=== PATIENT | male | born 1930 | race Caucasian/White ===

== ENCOUNTER 2016-10-19 12:41 | Emergency (ER) | payer OTHER, BC ==
[~2016-10-19] VITALS: Ht 175.3 cm; Wt 94.4 kg
[~2016-10-19 12:41] MED LIST: AMLODIPINE BESY10 MG PO; ANTIVERT25 MG PO; ASPIRIN E.C.81 M1 PO; ASPIRIN325 MG PO; Antivert PO; BISAC-EVAC10 MG PR; Baciguent TP; CALCIUM500 M4 PO; CLOPIDOGREL75 MG PO; CLORAZEPATE D3.75 MG PO; COUMADIN1 MG PO; COUMADIN3 MG PO; COUMADIN4 MG PO; COZAAR50 MG PO; Cozaar PO; DIOVAN80 MG PO; DUONEB 2.5-0.5 M3 ML IH; Diabeta,Micronase PO; ELAVIL75 MG PO; Ecotrin PO; Elavil PO; FLOMAX0.4 MG PO; GLUCAGEN1 MG IM/SC; GLUCOPHAGE1000 MG PO; GLYBURIDE5 MG PO; IBUPROFEN800 MG PO; JANUVIA100 MG PO; JANUVIA25 MG PO; Januvia PO; KEFLEX500 MG PO; KETOCONAZOLE60 GM TP; LANTUS 3 M100 UNITS1 SC; LEVEMIR FL100 UNIT/1 SC; LOSARTAN POTASS50 MG PO; LOW DOSE ASPIRI81 M1 PO; MECLIZINE HCL25 MG PO; METHOCARBAMOL500 MG PO; METOCLOPRAMIDE10 MG PO; MICRONASE5 MG PO; NAPROSYN-EC 37375 MG PO; NORVASC10 MG PO; NOVOLOG PE100 UNITS/ SC; Norvasc PO; ONDANSETRON ODT4 MG PO; OXYCODONE HCL5 M1 PO; Oscal 500 w/Vitamin PO; PANTOPRAZOLE SO40 MG PO; PERCOCET 5/31 TABLET PO; PLAVIX75 MG PO; PROTONIX40 MG PO; Plavix PO; Protonix PO; ROCEPHIN1000 MG IM; ROXICODONE5 MG PO; SENNA PLUS TAB1 EACH PO; SENNA-TIME S T1 EACH PO; SPIRIVA1 INHALATI IH; Senokot S,Pericolace PO; TAMSULOSIN HCL0.4 MG PO; THERAGRAN1 TABLET PO; TRANXENE T PO; TRANXENE T-TA3.75 MG PO; TYLENOL REGULA325 MG PO; Theragran PO; Vasotec PO; ZOFRAN4 MG PO
[2016-10-19 14:13] LABS: HEMATOCRIT 46.2 % (38.0-50.0); MCH 30.2 PG (29.0-34.0); MCHC 33.3 G/DL (30.0-36.0); MCV 90.6 FL (86-99); MEAN PLAT.VOLUME 9.6 uM^3 (9.0-12.4); PLATELET COUNT 230 K/uL (156-360); RBC DIS.WIDTH-CV 12.8 % (11.8-14.6); RBC DIS.WIDTH-SD 42.5 % (39-53); WHITE BLOOD COUNT 11.5 K/uL (4.1-10.2)
[2016-10-19 14:28] LABS: CHLORIDE 99 mEq/L (99-109); POTASSIUM 4.1 mEq/L (3.7-5.4); SODIUM 134 mEq/L (136-147)
[2016-10-19 14:30] LABS: GLUCOSE 203 mg/dL (70-99)
[2016-10-19 14:32] LABS: ANION GAP 8 MEQ/L (2-14)
[2016-10-19 14:34] LABS: GFR ESTIMATE (CALCULATED) 32 mL/min/
[2016-10-19 14:35] LABS: UREA NITROGEN (BUN) 31 mg/dL (9-23)
[2016-10-19 14:36] LABS: TROP-I INTERPRETATION NEGATIVE; TROPONIN-I 0.07 ng/mL (0.0-0.30)
[2016-10-19] MEDS ORDERED: PREDNISONE50 MG PO (14:52)
[2016-10-19] MEDS ORDERED: ZITHROMAX250 MG PO (14:52)
[2016-10-19] MEDS ORDERED: FLEXERIL10 MG PO (15:24)
[2016-10-19 15:39] VITALS: BP 145/78
== END 2016-10-19 15:41 | disposition home or self-care (01) ==
LOC: EME → EDBD 12:41 → EME 15:41
PROVIDERS: Emergency Medicine
DX: J44.1 Chronic obstructive pulmonary disease with (acute) exacerbation (principal); M54.12 Radiculopathy, cervical region; Z87.891 Personal history of nicotine dependence; E11.9 Type 2 diabetes mellitus without complications; Z79.84 Long term (current) use of oral hypoglycemic drugs; I10 Essential (primary) hypertension; I25.2 Old myocardial infarction; I69.392 Facial weakness following cerebral infarction; I69.398 Other sequelae of cerebral infarction; R53.1 Weakness; Z79.01 Long term (current) use of anticoagulants; Z79.82 Long term (current) use of aspirin
CPT/HCPCS: 71020; 80048; 84484; 85027; 93005; 94640; 99281; 99285; J7512

== ENCOUNTER 2017-07-16 11:42 | Inpatient (IN) | payer OTHER, BC ==
[~2017-07-16] VITALS: Ht 175.3 cm; Wt 90.4 kg
[~2017-07-16 11:42] MED LIST changes: +FLEXERIL10 MG PO; +PREDNISONE50 MG PO; +ZITHROMAX250 MG PO
[2017-07-16 12:41] LABS: HEMATOCRIT 48.3 % (38.0-50.0); HEMOGLOBIN 16.1 G/DL (12.5-16.6); MCH 31.1 PG (29.0-34.0); MCHC 33.3 G/DL (30.0-36.0); MCV 93.2 FL (86-99); PLATELET COUNT 402 K/uL (156-360); RBC DIS.WIDTH-CV 13.2 % (11.8-14.6); RBC DIS.WIDTH-SD 45.1 % (39-53); RED BLOOD COUNT 5.18 M/uL (4.00-5.50); WHITE BLOOD COUNT 14.8 K/uL (4.1-10.2)
[2017-07-16 12:51] LABS: CHLORIDE 94 mEq/L (99-109); SODIUM 134 mEq/L (136-147)
[2017-07-16 12:53] LABS: GLUCOSE 363 mg/dL (70-99)
[2017-07-16 12:57] LABS: CREATININE 3.3 mg/dL (0.6-1.3); GFR ESTIMATE (CALCULATED) 19 mL/min/ (58.99-99999); UREA NITROGEN (BUN) 57 mg/dL (9-23)
[2017-07-16 13:03] LABS: POTASSIUM 6.2 mEq/L (3.7-5.4); TROP-I INTERPRETATION NEGATIVE; TROPONIN-I 0.01 ng/mL (0.0-0.30)
[2017-07-16] MEDS ORDERED: OXYCODONE HCL10 MG PO (17:15)
[2017-07-16] MEDS ORDERED: ASPIR-LOW81 MG PO (17:16)
[2017-07-16] MEDS ORDERED: AMOX TR-K CLV1 EAC4 PO (17:16)
[2017-07-16] MEDS ORDERED: AMITRIPTYLINE H10 MG PO (17:17)
[2017-07-16] MEDS ORDERED: VENTOLIN HFA18 GM IH (17:17)
[2017-07-16] MEDS ORDERED: GLIPIZIDE5 MG PO (17:18)
[2017-07-16] MEDS ORDERED: PHENERGAN-CODE120 ML PO (17:18)
[2017-07-16] MEDS ORDERED: JANUVIA100 MG PO (17:18)
[2017-07-16] MEDS ORDERED: LOSARTAN POTASS50 MG PO (17:19)
[2017-07-16] MEDS ORDERED: DIABETA5 MG PO (17:19)
[2017-07-16 17:20] VITALS: BP 141/66
[2017-07-16] MEDS ORDERED: FUROSEMIDE20 MG PO (17:20)
[2017-07-16] MEDS ORDERED: PANTOPRAZOLE SO40 MG PO (17:20)
[2017-07-16] MEDS ORDERED: AMITRIPTYLINE H75 MG PO (17:20)
[2017-07-16] MEDS ORDERED: DOXYCYCLINE HY100 M3 PO (17:20)
[2017-07-16] MEDS ORDERED: AMLODIPINE BESYL5 MG PO (17:21)
[2017-07-16] MEDS ORDERED: TAMSULOSIN HCL0.4 MG PO (17:21)
[2017-07-16] MEDS ORDERED: CLOPIDOGREL75 MG PO (17:21)
[2017-07-16] MEDS ORDERED: LANTUS 3 M100 UNITS1 SC (17:22)
[2017-07-16] MEDS ORDERED: METHOCARBAMOL500 MG PO (17:23)
[2017-07-16] MEDS ORDERED: ERGOCALCIF50000 UNIT PO (17:23)
[2017-07-16 17:26] LABS: CHLORIDE 99 mEq/L (99-109); SODIUM 140 mEq/L (136-147)
[2017-07-16 17:33] LABS: UREA NITROGEN (BUN) 54 mg/dL (9-23)
[2017-07-16 17:40] LABS: CREATININE 2.8 mg/dL (0.6-1.3); GFR ESTIMATE (CALCULATED) 23 mL/min/ (58.99-99999); GLUCOSE 76 mg/dL (70-99)
[2017-07-16 17:41] LABS: POTASSIUM 4.9 mEq/L (3.7-5.4)
[2017-07-16 17:49] VITALS: BP 141/66
[2017-07-16 21:05] VITALS: BP 129/62
[2017-07-16 23:49] VITALS: BP 120/65
[2017-07-17 02:22] LABS: APPEARANCE TURBID ((CLEAR)); BILIRUBIN NEGATIVE; BLOOD LARGE; COLOR RED ((YELLOW)); GLUCOSE (STRIP) NEGATIVE; KETONES NEGATIVE; LEUKOCYTES NEGATIVE; NITRITE NEGATIVE; PROTEIN (STRIP) 30
[2017-07-17 02:24] LABS: RED BLOOD CELLS TNTC /HPF (0-5); UCUL ADDED? YES
[2017-07-17 03:38] VITALS: BP 130/63
[2017-07-17 04:23] LABS: UR CREATININE CONCENTRATION 86.2 MG/DL
[2017-07-17 06:28] LABS: HEMATOCRIT 43.9 % (38.0-50.0); MCH 29.9 PG (29.0-34.0); MCHC 31.9 G/DL (30.0-36.0); MCV 93.6 FL (86-99); PLATELET COUNT 364 K/uL (156-360); RBC DIS.WIDTH-CV 13.2 % (11.8-14.6); RBC DIS.WIDTH-SD 45.1 % (39-53); RED BLOOD COUNT 4.69 M/uL (4.00-5.50); WHITE BLOOD COUNT 9.7 K/uL (4.1-10.2)
[2017-07-17 06:33] LABS: CHLORIDE 102 MEQ/L (99-109); CREATININE 2.6 MG/DL (0.6-1.3); GFR ESTIMATE (CALCULATED) 25 mL/min/ (58.99-99999); POTASSIUM 4.8 MEQ/L (3.7-5.4); SODIUM 139 MEQ/L (136-147); UREA NITROGEN (BUN) 46 mg/dL (9-23)
[2017-07-17 06:45] LABS: GLUCOSE 134 mg/dL (70-99)
[2017-07-17 08:55] VITALS: BP 121/60
[2017-07-17 12:05] VITALS: BP 114/56
[2017-07-17 15:43] VITALS: BP 110/59
[2017-07-17 21:42] VITALS: BP 109/55
[2017-07-18 00:18] VITALS: BP 138/60
[2017-07-18 03:55] VITALS: BP 132/64
[2017-07-18 05:06] LABS: CHLORIDE 102 mEq/L (99-109); POTASSIUM 4.2 mEq/L (3.7-5.4); SODIUM 138 mEq/L (136-147)
[2017-07-18 05:08] LABS: GLUCOSE 158 mg/dL (70-99)
[2017-07-18 05:12] LABS: GFR ESTIMATE (CALCULATED) 32 mL/min/ (58.99-99999); UREA NITROGEN (BUN) 39 mg/dL (9-23)
[2017-07-18 05:16] LABS: CREATININE 2.1 mg/dL (0.6-1.3)
[2017-07-18 08:07] VITALS: BP 138/72
[2017-07-18 11:36] VITALS: BP 118/69
[2017-07-18 15:40] VITALS: BP 133/64
[2017-07-18 23:13] VITALS: BP 135/71
[2017-07-19 05:48] LABS: HEMATOCRIT 41.4 % (38.0-50.0); HEMOGLOBIN 13.4 G/DL (12.5-16.6); MCH 29.9 PG (29.0-34.0); MCHC 32.4 G/DL (30.0-36.0); MCV 92.4 FL (86-99); PLATELET COUNT 345 K/uL (156-360); RBC DIS.WIDTH-CV 12.7 % (11.8-14.6); RBC DIS.WIDTH-SD 43.5 % (39-53); RED BLOOD COUNT 4.48 M/uL (4.00-5.50); WHITE BLOOD COUNT 7.3 K/uL (4.1-10.2)
[2017-07-19 05:58] VITALS: BP 135/71; BP 155/78
[2017-07-19 06:33] LABS: CHLORIDE 106 MEQ/L (99-109); CREATININE 1.8 MG/DL (0.6-1.3); GFR ESTIMATE (CALCULATED) 38 mL/min/ (58.99-99999); GLUCOSE 179 mg/dL (70-99); MAGNESIUM 1.8 mg/dl (1.3-2.7); POTASSIUM 4.8 MEQ/L (3.7-5.4); SODIUM 137 MEQ/L (136-147); UREA NITROGEN (BUN) 27 mg/dL (9-23)
[2017-07-19 07:30] VITALS: BP 152/70
[2017-07-19 11:47] VITALS: BP 157/71
[2017-07-19] MEDS ORDERED: CEFTIN500 MG PO (12:51)
[2017-07-19] MEDS ORDERED: NIFEDIPINE ER30 MG PO (12:54)
[2017-07-19] MEDS ORDERED: TAMSULOSIN HCL0.4 MG PO (12:54)
== END 2017-07-19 14:30 | disposition home health service (06) | DRG 190 ==
LOC: EME 11:42 → EDOF 14:44 → ENRESERV 14:45 → 4EAST 17:11 → ENPENDDIS 07-19 → 4EAST 07-19 14:30
PROVIDERS: Emergency Medicine; Hospitalist; Internal Medicine; Internal Medicine Nephrology
DX: J44.1 Chronic obstructive pulmonary disease with (acute) exacerbation (principal); J96.01 Acute respiratory failure with hypoxia; J44.0 Chronic obstructive pulmonary disease with (acute) lower respiratory infection; N17.9 Acute kidney failure, unspecified; I69.354 Hemiplegia and hemiparesis following cerebral infarction affecting left non-dominant side; E87.5 Hyperkalemia; Z74.01 Bed confinement status; I12.9 Hypertensive chronic kidney disease with stage 1 through stage 4 chronic kidney disease, or unspecified chronic kidney disease; N18.3 Chronic kidney disease, stage 3 (moderate); E11.22 Type 2 diabetes mellitus with diabetic chronic kidney disease; E78.5 Hyperlipidemia, unspecified; E87.2 Acidosis; J18.9 Pneumonia, unspecified organism; N40.1 Benign prostatic hyperplasia with lower urinary tract symptoms; Z96.642 Presence of left artificial hip joint; R33.8 Other retention of urine; R31.0 Gross hematuria; S37.30XA Unspecified injury of urethra, initial encounter; Y84.6 Urinary catheterization as the cause of abnormal reaction of the patient, or of later complication, without mention of misadventure at the time of the procedure; Z79.4 Long term (current) use of insulin; K21.9 Gastro-esophageal reflux disease without esophagitis; I25.10 Atherosclerotic heart disease of native coronary artery without angina pectoris; Z87.891 Personal history of nicotine dependence; N13.8 Other obstructive and reflux uropathy; M19.90 Unspecified osteoarthritis, unspecified site
CPT/HCPCS: 71046; 71250; 76770; 80048; 80048 91; 81003; 82570; 82948; 83605; 83735; 84156; 84484; 85027; 87086; 87449; 87502; 93005; 94640; 94640 76; 94760; 94799; 99202; 99281; 99285; J0456; J0610; J0696; J1644; J7030; J7050